=== PATIENT | female | born 1975 | race Two or more races ===

== ENCOUNTER 2025-03-05 18:47 | Emergency (ER) | payer MEDICAID, SELFPAY ==
[2025-03-05 18:58] VITALS: BP 122/78; PULSE 82; RESP 16; TEMP 37.1; O2SAT 97; BMI 32.1
--- NOTE | 2025-03-05 19:13 | XR_ITS ---
Examination: CT cervical spine without contrast 2-D sagittal reconstructions 2-D coronal reconstructions 3-D reconstructions. Exam date and time:March 05, 2025 1947 hours INDICATIONS: Patient fell today with into the neck, neck pain CTDI:vol (mGy) 15.5 DLP: (mGycm) 317 Technique: Multiple 2 mm axial sections of the cervical spine have been obtained. The coronal and sagittal reconstructions have been obtained. 3-D reconstructions have been obtained. Low dose protocols were performed. One or more of the following dose reduction techniques were used; automated exposure control, adjustment of the mA and/or KV according to patient size, use of iterative reconstruction technique. Findings: Axial sections demonstrate intact base of the skull. C1 exhibit satisfactory relationship to the odontoid. No acute cervical vertebral body fracture seen. Alignment posterior spinous processes satisfactory. Impression: No acute cervical fracture.
--- NOTE | 2025-03-05 19:13 | XR_ITS ---
Examination: CT brain head without contrast. 2-D sagittal coronal reconstructions Date and time of exam:March 05, 2025, 1947 hours INDICATIONS: Ground-level fall today with injury to the head, head pain CTDI: vol (mGy):46 DLP: (mGycm):974 Technique: Multiple CT axial sections of the brain have been obtained, 5 mm slice thickness. Contrast has not been administered. 2-D sagittal, coronal reconstructions have been obtained Low dose protocols were performed. One or more of the following dose reduction techniques were used; automated exposure control, adjustment of the mA and/or KV according to patient size, use of iterative reconstruction technique. Findings: No significant ventricular enlargement. Intra-axial or extra-axial hemorrhage density is not seen. No mass effect or midline shift Basal cisterns are not remarkable. Fourth ventricle is midline. Cranial vault intact. Impression: Negative for acute hemorrhage, mass effect or midline shift
--- NOTE | 2025-03-05 19:20 | PD.EDFALL ---
ED Fall Injury RME/HPI General Chief Complaint: Fall Stated Complaint: Fall in shower, hit her head Time Seen by Provider: 03/05/25 19:13 Arrival date/time: 03/05/25 18:47 50F with no significant PMH presents to ED with head, neck, and R hip pain after slip and fall in shower. Patient denies vision changes, AMS, seizures, N/V, and LOC. Limitations: no limitations Related Data Home Medications ?Medication ?Instructions ?Recorded ?Confirmed cetirizine 10 mg tablet 1 tab PO DAILY 12/22/21 12/22/21 dicloxacillin 500 mg capsule 1 cap PO QID 12/22/21 12/22/21 fluticasone propionate 50 1 ea intranasal DAILY 12/22/21 12/22/21 mcg/actuation nasal spray,suspension Previous Rx's ?Medication ?Instructions ?Recorded hydrocodone 5 mg-acetaminophen 325 1 tab PO Q4HR PRN Pain Scale 4-6 12/25/ mg tablet (Moderate #12 tabs tramadol 37.5 mg-acetaminophen 325 1 tab PO TID PRN pain #15 tabs 02/19/ mg tablet (Ultracet) Allergies Allergy/AdvReac Type Severity Reaction Status Date / Time No Known Allergies Allergy Unknown Verified 03/05/25 18:55 Review of Systems Review of Systems Systems Reviewed: All systems reviewed, normal except as documented Constitutional Constitutional: Reports system reviewed and no additional complaints, except as documented, Reports as per HPI, Denies fever(s) and Reports headache(s) ENT Ears, Nose, Mouth, and Throat: Denies disequilibrium, Reports headache(s) and Reports neck pain Cardiovascular Cardiovascular: Reports system reviewed and no additional complaints, except as documented, Denies chest pain and Denies dyspnea Respiratory Respiratory: Reports system reviewed and no additional complaints, except as documented, Denies cough and Denies dyspnea Gastrointestinal Gastrointestinal: Reports system reviewed and no additional complaints, except as documented, Denies abdominal pain, Denies nausea and Denies vomiting Musculoskeletal Musculoskeletal: Reports as per HPI, Reports arthralgias and Reports neck pain Neurologic Neurologic: Reports system reviewed and no additional complaints, except as documented, Denies confusion, Denies disequilibrium and Reports headache(s) Psychiatric Psychiatric: Denies confusion Past Medical History Past Medical History NEUROLOGIC: Negative Neurological Disorders CARDIAC: Negative Cardiac Disorders or Congestive Heart Failure RESPIRATORY: Negative Chronic Obstructive Pulmonary Disease (COPD) GASTROINTESTINAL: Negative Gastrointestinal Disorders GENITOURINARY: Negative Genitourinary Disorders or Renal Disease MUSCULOSKELETAL: Negative Musculoskeletal Disorders ENDOCRINE: Negative Endocrine Disorders, Diabetes Mellitus Type 1 or Diabetes Mellitus Type 2 HEMATOLOGIC: Negative Blood Disorders Family History FAMILY HISTORY: Negative Family Cardiac Disorders or Family Anesthesia Reaction Surgical History SURGICAL: Positive Tubal Ligation Social History SMOKING STATUS: Never smoker SECOND HAND EXPOSURE: No ED Exam General Limitations: Present no limitations General appearance: Present alert and in no apparent distress Head Head exam: Present atraumatic Eye Eye exam: Present normal appearance, PERRL and EOMI ENT ENT exam: Present normal exam, normal oropharynx and mucous membranes moist Neck Neck exam: Present normal inspection, full ROM and trachea midline Chest Chest inspection: Present normal inspection and symmetric chest wall rise Respiratory Respiratory exam: Present normal lung sounds bilaterally Cardiovascular Cardiovascular exam: Present regular rate, normal rhythm and normal heart sounds Abdominal Exam Abdominal exam: Present soft and normal bowel sounds Extremities Exam Extremities exam: Present normal inspection and full ROM Back Exam Back exam: Present normal inspection and full ROM Neurological Exam Neurological exam: Present alert, oriented X3 and CN II-XII intact Psychiatric Psychiatric exam: Present normal affect and normal mood Skin Skin exam: Present warm, dry, intact and normal color Course Quality Measures none Orders Category Date Time Status CT cervical spine wo con Stat Exams 03/05/25 19:[address] head/brain wo con Stat Exams 03/05/25 19:13 Completed Vital Signs Vital signs: Vital Signs Temperature 98.7 F 03/05/25 18:58 Pulse Rate 82 03/05/25 18:58 Respiratory Rate 16 03/05/25 18:58 Blood Pressure 122/78 03/05/25 18:58 Pulse Oximetry (%) 97 03/05/25 18:58 Oxygen Delivery Method Room Air 03/05/25 18:58 O2 at 97% on RA and WNLs Fall MDM Narrative MDM Narrative:: 50F with no significant PMH presents to ED with head, neck, and R hip pain after slip and fall in shower. Patient denies vision changes, AMS, seizures, N/V, and LOC. Physical exam reveals normal pupil response and EOM. No gross head trauma. Neck ROM intact. Gait normal. Speech normal. Normal WOB. Patient is afebrile, calm, and alert. CT unremarkable. Physics Department Chair given. Patient data External records reviewed:: [facility] previous records Clinical information provided by:: patient Social determinants that could affect healthcare access:: none Patient has the following chronic illnesses:: none How is presenting disease/condition affected by chronic disease/condition?: no chronic disease Evaluation data The following diagnostics were reviewed and interpreted by me:: radiology exam(s) Lab and/or radiology exams considered but not ordered:: ordered Interpretation Summary: above Medications / Prescriptions Medications or Prescriptions considered but not ordered:: not ordered Medication administrations:: n/a Consultations Consultation(s) initiated? (list below): No Diagnosis Fall Differential Diagnosis: syncope, dislocation of shoulder region, fracture of wrist, compression fracture, concussion without loss of consciousness and other (soft tissue contusion, CHI, cervical fx) Most likely diagnosis given after review of the tests above:: CHI and soft tissue contusion Admission Indicated Admission indicated?: not indicated Admission Request Was there a request for admission?: No Disposition Plan Disposition Plan: Discharge Discharge Attestation Discharge Attestation: The patient and all family members were given an opportunity to ask questions and understood the discharge instructions. Discharge instructions specifically effects, indications for sooner follow up or return to the emergency department, and the expected course of current diagnosis. Patient condition: Stable Discharge Plan Plan Patient Disposition: HOME (Self Care) Discharge Disposition comment: Stable Prescriptions/Referrals Prescriptions/Med Rec: No Action dicloxacillin 500 mg capsule 1 cap PO QID Patient Comments: 1 CAPSULE 1 HOUR BEFORE OR 2 HOURS AFTER MEALS ORALLY EVERY 6 HOURS 7 FOR DAY(S) cetirizine 10 mg tablet 1 tab PO DAILY Patient Comments: JOSEPH ZAFAR TODOS LOS D FOR 90 DAYS fluticasone propionate 50 mcg/actuation spray,suspension 1 ea INTRANASAL DAILY Patient Comments: USE ONE SPRAY INTO EACH NOSTRIL ONCE A DAY FOR 30 DAYS hydrocodone-acetaminophen 5-325 mg Tablet 1 tab PO Q4HR MDD 30 mg PRN (Reason: Pain Scale 4-6 (Moderate) Qty: 12 0RF tramadol-acetaminophen [Ultracet] 37.5-325 mg tablet 1 tab PO TID PRN (Reason: pain) Qty: 15 0RF Problem List Clinical Impression: CHI (closed head injury), Contusion of soft tissue Patient/Caregiver Discharge Instructions Education Materials: ED Soft Tissue Contusion, ED Head Injury with Sleep ... Additional Instructions: Please follow-up with PCP within 24-48 hours and return immediately if symptoms worsen. If problem persists, recommend outpatient PT and/or MRI follow-up. In the meantime, rest, use ice/heat, and/or compression. Print Language: Uzbek Stand Alone Forms: Patient Portal Info Letter PA/SAND WORKER Supervising Physician PA/SAND WORKER Supervising Physician: Dr. Elder
== END 2025-03-05 20:25 | disposition home or self-care (01) ==
LOC: SERX 20:27
PROVIDERS: Emergency Provider Emergency Medicine; PCP Physician Assistant
DX: S00.93XA Contusion of unspecified part of head, initial encounter (principal); S10.93XA Contusion of unspecified part of neck, initial encounter; W18.2XXA Fall in (into) shower or empty bathtub, initial encounter
CPT/HCPCS: 70450; 72125; 99283